=== PATIENT | female | born 1995 | race Caucasian/White ===

== ENCOUNTER 2017-09-19 16:09 | Emergency (ER) | payer OTHER ==
--- NOTE | 2017-09-19 17:05 | RAD ---
RADIOGRAPH RIGHT FOOT 3 VIEWS: 09/19/17 HISTORY: 22-year-old female with nontraumatic pain and tenderness over first metatarsal. FINDINGS: There is no hallux valgus. The joint spaces are maintained without erosions or osteophytes. No perios teal elevation, permeative lesion, osteolytic lesion, osteoblastic lesion, fracture, or dislocation. No soft tissue calcifications. IMPRESSION: Normal. POS: [facility]
== END 2017-09-19 17:14 | disposition home or self-care (01) ==
LOC: ERS 16:09
DX: M79.671 Pain in right foot (principal); F41.9 Anxiety disorder, unspecified; F32.9 Major depressive disorder, single episode, unspecified

== ENCOUNTER 2021-11-21 08:13 | Outpatient (CLI) | payer BC ==
[2021-11-21 08:46] LABS: #Basophils 0.1 10x3/uL (0.0-0.2); #Eosinphils 0.1 10x3/uL (0.0-0.5); #Monocytes 0.7 10x3/uL (0.0-1.1); #Neutrophils 5.6 10x3/uL (1.5-8.4); %Basophils 0.7 % (0.0-2.0); %Lymphocytes 29.4 % (18.0-47.0); %Monocytes 7.2 % (0.0-10.0); %Neutrophils 61.5 % (40.0-75.0); Hemoglobin 13.5 g/dL (12.0-15.5); Mean Corpuscular HGB CONC 33.9 g/dL (32.0-36.0); Mean Corpuscular Hemoglobin 29.2 pg (27.0-33.0); Mean Corpuscular Volume 86.1 fl (81.6-98.3); Mean Platelet Volume 10.2 fl (7.4-10.4); Platelet Count 340 10x3/uL (150-450); RBC Distribution Width 12.8 % (11.5-14.5); Red Blood Cell (RBC) Count 4.62 10x6/uL (3.90-5.03)
[2021-11-21 09:31] LABS: BHCG - Serum Negative (NEGATIVE); Pregs Control Background? CLEAR/WHITE (CLR/WHITE); Pregs Control Bar Appear? YES (CONTROL BAR)
[2021-11-21 09:40] LABS: Anion Gap 11 mmol/L (10-20); BUN (Urea Nitrogen) 12 mg/dL (7.0-18.7); Calc. Creatinine Clearance 0 mL/min (70-130); Calcium 9.3 mg/dL (7.8-10.44); Carbon Dioxide 25 mmol/L (22-29); Chloride 107 mmol/L (98-107); Glucose 88 mg/dL (70-105); Potassium 4.3 mmol/L (3.5-5.1); Sodium 139 mmol/L (136-145)
[2021-11-21 16:29] LABS: SARS-CoV-2 PCR by NAA Not Detected (NotDetected)
== END 2021-11-21 08:14 | disposition home or self-care (01) ==
LOC: LABBT 08:13
PROVIDERS: ATTEND Specialist
DX: Z01.812 Encounter for preprocedural laboratory examination (principal); E66.01 Morbid (severe) obesity due to excess calories; Z20.822 Contact with and (suspected) exposure to COVID-19
CPT/HCPCS: 80048; 84703; 85025; U0003; U0005

== ENCOUNTER 2021-11-21 09:30 | Inpatient (IN) | payer BC ==
[2021-11-26] MEDS ORDERED: Heparin 5,000 UNITS/ML VIAL ONE (08:08)
[2021-11-26] MEDS ORDERED: Acetaminophen 500 MG TAB ONE (08:08)
[2021-11-26] MEDS ORDERED: Ketorolac Tromethamine 30 MG/ML VIAL ONE (08:08)
[2021-11-26] MEDS ORDERED: Scopolamine 1.5 mg/72 hour Patch ONE (08:08)
[2021-11-26] MEDS ORDERED: Lidocaine 1% w/Epinephrine 1:100K 20 ML VIAL ONE (09:24)
[2021-11-26] MEDS ORDERED: Bupivacaine 0.25% 10 ML VIAL ONE (09:24)
[2021-11-26] MEDS ORDERED: Midazolam HCl 2 mg/2 ml Vial ONE (09:36)
[2021-11-26] MEDS ORDERED: fentaNYL Citrate/PF 100 MCG/2 ML SYRINGE ONE (09:36)
[2021-11-26] MEDS ORDERED: cefOXitin 2 GM VIAL ONE (09:38)
[2021-11-26] MEDS ORDERED: Sodium Chloride 0.9% 100 ML ONE (09:38)
[2021-11-26] MEDS ORDERED: PHENYLEPHRINE-NS 100 MCG/ML 10 ML SYRINGE ONE (09:45)
[2021-11-26] MEDS ORDERED: Glycopyrrolate 0.2 MG/ML 5 ML SYRINGE ONE (09:45)
[2021-11-26] MEDS ORDERED: Ondansetron PF 4 MG/2 ML Vial ONE (09:45)
[2021-11-26] MEDS ORDERED: Dexamethasone 20 MG/5 ML VIAL ONE (09:45)
[2021-11-26] MEDS ORDERED: Rocuronium Bromide 10 MG/ML (10ML VIAL) ONE (09:45)
[2021-11-26] MEDS ORDERED: Lidocaine 1% PF 5 ML VIAL ONE (09:45)
[2021-11-26] MEDS ORDERED: PROPOFOL 200 MG/20 ML VIAL ONE (09:45)
[2021-11-26] MEDS ORDERED: diphenhydrAMINE 50 MG/ML VIAL ONE (09:45)
[2021-11-26] MEDS ORDERED: Meperidine HCl/PF 25 MG/ML VIAL SLOW IVP PRN (11:41)
[2021-11-26] MEDS ORDERED: Ondansetron HCl/PF 4 MG/2 ML Vial IVP PRN (11:41)
[2021-11-26] MEDS ORDERED: HYDROmorphone 2 MG/ML VIAL SLOW IVP PRN (11:41)
[2021-11-26] MEDS ORDERED: Promethazine HCl 25 MG/ML VIAL IVPB PRN (11:41)
[2021-11-26] MEDS ORDERED: Promethazine HCl 25 MG/ML VIAL IM PRN ×2 (11:41→11:57)
[2021-11-26] MEDS ORDERED: Fentanyl 100 MCG/2 ML VIAL ONE (11:44)
[2021-11-26] MEDS ORDERED: diphenhydrAMINE 50 MG/ML VIAL IVP PRN (11:57)
[2021-11-26] MEDS ORDERED: Dextrose 5% in Water 1,000 ML IV PRN (11:57)
[2021-11-26] MEDS ORDERED: hydrALAZINE 20 MG/ML VIAL SLOW IVP PRN (11:57)
[2021-11-26] MEDS ORDERED: Hydrocodone-Acetamin 15 ML UDCUP PO PRN (11:57)
[2021-11-26] MEDS ORDERED: Dextrose 50% Abboject 50 ML SYRINGE SLOW IVP PRN (11:57)
[2021-11-26] MEDS ORDERED: Morphine 2 MG/ML VIAL SLOW IVP PRN (11:57)
[2021-11-26 13:40] VITALS: BMI 46.7
[2021-11-26] MEDS: Ketorolac Tromethamine 30 MG/ML VIAL IVP SCH ×3 (13:48→23:17)
[2021-11-26] MEDS: Ondansetron PF 4 MG/2 ML Vial IVP PRN ×2 (13:54→20:50)
[2021-11-26] MEDS: D5 1/2 NS w/20 mEq KCL 1,000 ML IV SCH ×2 (13:54→21:04)
[2021-11-26] MEDS: Morphine 4 MG/ML VIAL SLOW IVP PRN ×2 (13:54→20:50)
[2021-11-26] MEDS ORDERED: Enoxaparin Sodium 40 MG/0.4 ML SYRINGE SC SCH (21:00)
[2021-11-26] MEDS ORDERED: Cepastat Lozenges 1 LOZ PO PRN (22:11)
[2021-11-27] MEDS: D5 1/2 NS w/20 mEq KCL 1,000 ML IV SCH (04:45)
[2021-11-27] MEDS: Ketorolac Tromethamine 30 MG/ML VIAL IVP SCH (05:07)
[2021-11-27 05:42] LABS: #Lymphocytes 2.3 thou/uL (1.20-3.40); #Neutrophils 13.1 thou/uL (1.40-6.50); %Lymphocytes 13.9 % (21.0-51.0); %Monocytes 6.1 % (0.0-10.0); Hemoglobin 14.1 g/dL (12.0-16.0); Mean Corpuscular Hemoglobin 30.4 pg (27.0-31.0); Mean Corpuscular Volume 92.1 fL (78.0-98.0); Mean Platelet Volume 8.1 fL (7.4-10.4); Platelet Count 344 thou/uL (130-400); RBC Distribution Width 11.9 % (11.5-14.5); Red Blood Cell (RBC) Count 4.64 mill/uL (4.20-5.40); White Blood Cell (WBC) Count 16.4 thou/uL (4.8-10.8)
[2021-11-27 05:50] LABS: Anion Gap 13 mmol/L (10-20); BUN (Urea Nitrogen) 4 mg/dL (7.0-18.7); Calc. Creatinine Clearance 259 mL/min (70-130); Calcium 8.8 mg/dL (7.8-10.44); Carbon Dioxide 24 mmol/L (22-29); Chloride 106 mmol/L (98-107); Glucose 114 mg/dL (70-105); Potassium 3.7 mmol/L (3.5-5.1); Sodium 139 mmol/L (136-145)
[2021-11-27 08:12] VITALS: BP 111/69; TEMP 98.3
[2021-11-27] MEDS ORDERED: Pantoprazole 40 MG VIAL IVP SCH (09:00)
== END 2021-11-27 10:13 | disposition home or self-care (01) | DRG 621 ==
LOC: SURG A 11-26 07:43 → SURG B 11-26 13:25
PROVIDERS: ADMIT Specialist; ATTEND Specialist
PROC: 0DB64Z3 Excision of Stomach, Percutaneous Endoscopic Approach, Vertical (ICD-10-PCS; principal; 2021-11-26)
DX: E66.01 Morbid (severe) obesity due to excess calories (principal); Z68.42 Body mass index [BMI] 45.0-49.9, adult
CPT/HCPCS: 36415; 80048; 85025; 88307; 94760; A4649; C9113; J0694; J1100; J1200; J1644; J1650; J1885; J2250; J2270; J2405; J2704; J3010; J3480; J3490; S0020